=== PATIENT | female | born 2000 | race Caucasian/White ===

== ENCOUNTER → 2025-04-12 10:00 | Outpatient (BNV) | payer MEDICARE, MEDICAID, SELFPAY | PROVIDERS: Visit Provider Psychiatry & Neurology Psychiatry | DX: F25.0 Schizoaffective disorder, bipolar type (principal); F41.1 Generalized anxiety disorder; F43.10 Post-traumatic stress disorder, unspecified | CPT/HCPCS: 99213; 99214 ==

== ENCOUNTER 2025-04-12 11:18 | Outpatient (REF) | payer MEDICARE, MEDICAID, SELFPAY ==
--- NOTE | 2025-04-12 11:30 | ECG_ITS ---
Test Reason : ROUTINE EKG Blood Pressure : */* mmHG Vent. Rate : 81 BPM Atrial Rate : 81 BPM P-R Int : 126 ms QRS Dur : 88 ms QT Int : 392 ms P-R-T Axes : 24 54 19 degrees QTcB Int : 455 ms Normal sinus rhythm Normal ECG No previous ECGs available Referred By: Paz Good Electronically Signed By: MAXIMO AB
[2025-04-12 11:44] LABS: MANUAL DIFF FLAG NO
--- OUTSIDE RECORDS SUMMARY | 2025-04-12 12:00 | XMS_ITS | Clinical Summary ---
Author Organization [facility] Address [address] [facility] [address] [place] [address] Phone Care Team Providers Care Contact Finger Assembler Name Role Phone Unknown, Unknown Primary Care Provider Maty arguelles Allergies No known active allergies Medications norethindrone-e thinyl estradiol (ORTHO-NOVUM 1-35 TAB,NORTREL 1-35 TAB) 1-0.035 mg per tablet Take 1 tablet by mouth daily. Active benztropine (COGENTIN) 0.5 MG tablet Take 7.5 mg by mouth 2 (two) times a day. Active lamoTRIgine (LAMICTAL) 100 MG tablet Take 150 mg by mouth 2 (two) times a day. Active mirtazapine (REMERON) 7.5 MG tablet Take 30 mg by mouth nightly at bedtime. Active hydrOXYzine HCL (ATARAX) 10 MG tablet Take 10 mg by mouth 3 (three) times a day as needed for itching. Active ziprasidone (GEODON) 40 MG capsule TAKE 1 CAPSULE BY MOUTH 2 TIMES A DAY,INSTR WITH FOOD 10/30/2020 Active ziprasidone (GEODON) 80 MG capsule 100 mg. 2 times a day 11/06/2020 Active tiZANidine (ZANAFLEX) 4 MG tablet Take 1 tablet (4 mg total) by mouth every 12 (twelve) hours. 180 tablet 1 02/06/2021 Active gabapentin (NEURONTIN) 100 MG capsule Take 3 capsules (300 mg total) by mouth daily. Take 3 caps at bed time. 270 capsule 3 06/02/2021 Active nabumetone (RELAFEN) 500 MG tablet Take 1 tablet (500 mg total) by mouth 2 (two) times a day. 180 tablet 08/17/2021 Active Active Problems Problem Noted Date Diagnosed Date Positive SABRINA (antinuclear antibody) 01/18/2020 Assessment & Plan (11/19/2020 4:15 PM EDT): Patient will monitor for any new autoimmune changes, symptoms. No new changes on visit today. Acute pain of both shoulders 12/05/2019 Assessment & Plan (11/19/2020 4:16 PM EDT): Continue nabumetone 500 mg Take one pill PO BID with food for knee pain relief. Acute pain of both knees 12/05/2019 Assessment & Plan (11/19/2020 4:16 PM EDT): Continue nabumetone 500 mg Take one pill PO BID with food for knee pain relief. Continue Zanaflex 4 mg PO qhs for knee tendinitis pain as needed. Muscle spasm 12/05/2019 Assessment & Plan (11/19/2020 4:16 PM EDT): Continue Zanaflex 4 mg take one pill PO qhs. Immunizations Immunization Administration Dates Next Due COVID-19 (Pre-05/16) Pfizer Vaccine, mRNA, PF Social History Tobacco Use Types Packs/Day Years Used Date Smoking Tobacco: Never Smokeless Tobacco: Never Alcohol Use Standard Drinks/Week Comments Never 0 (1 standard drink = 0.6 oz pur e alcohol) Education Answer Date Recorded Are you interested in more education? Not on kali e 11/19/2022 Are you concerned about learning? Not on file 11/19/2022 No 11/19/2022 No 11/19/2022 Digital Access Answer Date Recorded No 12/18/2022 No 12/18/2022 No 12/18/2022 Reliable internet access at home? Not on file 12/18/2022 Device with a working camera? Not on file Comments Unknown Sex and Gender Information Value Date Recorded Sex Assigned at Female 04/03/2020 11:56 AM EDT Legal Sex Female 3:36 PM EST Gender Identity Female 04/03/2020 11:56 AM EDT Sexual Orientation Not on file Last Filed Vital Signs Vital Sign Reading Time Taken Comments Blood Pressure 112/70 04/10/2021 1:54 PM EDT Pulse 90 02/06/2021 12:59 PM EDT Temperature 37 C (98.6 F) 07/16/2020 4:08 PM EST Respiratory Rate - - Oxygen Saturation 98% 02/06/2021 12:59 PM EDT Inhaled Oxygen Concentration - - Weight 49 kg (108 lb) 04/10/2021 1:54 PM EDT Height 152.4 cm (5') 04/10/2021 1:54 PM EDT Body Mass Index 21.09 04/10/2021 1:54 PM EDT Plan of Treatment Health Maintenance Due Date Last Done Comments DEPRESSION SCREENING 2010 HEPATITIS C SCREENING 2016 HIV ONE-TIME SCREENING (18-65 YEARS) 2016 MENINGOCOCCAL VACCINES (B) (2 of 2 - Bexsero SCDM 2-dose series) 05/11/2018 11/09/2017 PAP SMEAR 12/11/2019 Adult Td,Tdap Booster 12/29/2020 12/29/2010 SMOKING STATUS SCREENING (Once After 26 Yrs) 2024 INFLUENZA VACCINE (#1) 2025 , 09/03/2017, 08/28/2014, Additional history exists COVID-19 VACCINE ( season) 2025 12/08/2020, 11/17/2020 HIB VACCINES Completed 11/20/2001 HPV VACCINES Completed 09/03/2015, 0210/2014, 07/12/2013 MENINGOCOCCAL VACCINES (ACWY) Completed 09/03/2015, 12/29/2010 HEPATITIS A VACCINES Aged Out No long er eligible based on patient's age to complete this topic PNEUMOCOCCAL VACCINES (0-49 years) Aged Out No longer eligible based on patient's age to complete this topic Medical Devices Not on file Insurance [employer] [place] [id number] [employer] TOTAL [employer]DE[employer] TOTAL CHOICE INDEMNITY [employer] TOTAL CHOICE INDEMNITY [employer] TOTAL CHOICE INDEMNITY [employer] TOTAL CHOICE INDEMNITY [employer] TOTAL CHOICE INDEMNITY [employer] TOTAL CHOICE INDEMNITY [facility] TOTAL CHOICE INDEMNITY Care Teams Contact Finger Assembler Relationship Specialty Start Date End Date Unknown, Unknown, PCP - General 05/05/21 Additional Source Comments The information contained in this document represents components of the legal health record. It is not the complete legal health record.[facility]
[2025-04-12 12:16] LABS: Hematocrit 39.5 % (37.0-47.0); Hemoglobin 13.2 g/dl (12.0-16.0); Imm Gran Abs Auto 0.02 X10*3/uL (0.00-0.03); Imm Gran Pct Auto 0.3 % (0.0-0.4); Lymphocytes Absolute Auto 2.8 X10*3/uL (1.2-4.9); Mean Corpuscular HGB Conc 33.4 g/dl (31.0-35.0); Mean Corpuscular Hemoglobin 28.8 pg (27.0-33.0); Mean Corpuscular Volume 86.2 fL (80.0-98.0); NRBC Abs Auto 0.000 X10*3/uL (0.0-0.012); NRBC Pct Auto 0.0 /100WBC (0.0-0.2); Platelet Count 394 X10*3/uL (160-400); Red Blood Count 4.58 X10*6/uL (4.20-5.50); White Blood Count 7.7 X10*3/uL (4.8-10.8)
[2025-04-12 12:33] LABS: Hemoglobin A1C 109.3671 umol/L; Total Hemoglobin (HGBA1C) 3524.9290 umol/L
[2025-04-12 12:44] LABS: Lithium 0.25 mmol/L (0.60-1.20)
[2025-04-12 13:04] LABS: Alanine Aminotransferase 21 U/L (0-31); Albumin Level 4.3 g/dL (3.5-5.0); Alkaline Phosphatase 63 U/L (39-117); Anion Gap 11 (12-20); Aspartate Amino Transferase 22 U/L (5-31); Blood Urea Nitrogen 10 mg/dL (9-16); Calcium 9.2 mg/dL (8.4-10.2); Carbon Dioxide 23 mmol/L (22-29); Chloride 108 mmol/L (96-108); Cholesterol 204 mg/dL (<200); Estimated Glomerular Filt Rate > 60; Iron 21 mcg/dL (30-160); Magnesium 1.9 mg/dL (1.6-2.6); Percent Iron Saturation 6 % (15-50); Potassium 4.0 mmol/L (3.3-5.1); Sodium 138 mmol/L (135-145); Total Iron Binding Capacity 364 mcg/dL (228-428); Total Protein 7.3 g/dL (6.5-8.0); Unsaturated Iron Binding 343 ug/dL
[2025-04-12 13:21] LABS: Free T4 (Free Thyroxine) 1.00 ng/dL (0.71-1.85); Thyroid Stimulating Hormone 2.71 uIU/mL (0.32-4.0)
[2025-04-12 13:25] LABS: Folate 6.5 ng/mL (> or = 4.0); Vitamin B12 521 pg/mL (200-900)
== END 2025-04-12 11:19 | disposition home or self-care (01) ==
LOC: HO.LAB 11:18
PROVIDERS: PCP Physician Assistant Medical; Visit Provider Psychiatry & Neurology Psychiatry
DX: F25.0 Schizoaffective disorder, bipolar type (principal); F43.0 Acute stress reaction; Z13.6 Encounter for screening for cardiovascular disorders; Z13.1 Encounter for screening for diabetes mellitus; Z13.29 Encounter for screening for other suspected endocrine disorder; Z13.0 Encounter for screening for diseases of the blood and blood-forming organs and certain disorders involving the immune mechanism
CPT/HCPCS: 36415; 80053; 80178; 82306; 82465; 82550; 82607; 82746; 83036; 83540; 83735; 84425; 84439; 84443; 85025; 93005

== ENCOUNTER → 2025-04-12 11:30 | Outpatient (BNV) | payer MEDICARE, MEDICAID, SELFPAY | PROVIDERS: PCP Physician Assistant Medical; Visit Provider Internal Medicine | DX: Z13.6 Encounter for screening for cardiovascular disorders (principal) | CPT/HCPCS: 93010 ==

== ENCOUNTER 2025-05-01 14:01 | Outpatient (REF) | payer MEDICARE, MEDICAID, SELFPAY ==
--- NOTE | 2025-05-01 14:07 | ECG_ITS ---
Test Reason : CHECK QT Blood Pressure : */* mmHG Vent. Rate : 91 BPM Atrial Rate : 91 BPM P-R Int : 118 ms QRS Dur : 82 ms QT Int : 372 ms P-R-T Axes : 71 50 11 degrees QTcB Int : 457 ms Normal sinus rhythm Normal ECG When compared with ECG of 12-Apr-2025 11:45, No significant change was found Referred By: Paz Good Electronically Signed By: MONIQUE HEATH MD
[2025-05-01 14:58] LABS: Appearance Urine Clear; Glucose Urine UA Negative (Negative); PH 7.0 (5.0-9.0); Specific Gravity - Urine <= 1.005 (1.005-1.025)
[2025-05-01 15:24] LABS: Osmolality, Serum 292 mosm/kg (281-305)
[2025-05-01 15:34] LABS: Anion Gap 10 (12-20); Blood Urea Nitrogen 8 mg/dL (9-16); Calcium 9.3 mg/dL (8.4-10.2); Carbon Dioxide 22 mmol/L (22-29); Chloride 109 mmol/L (96-108); Estimated Glomerular Filt Rate > 60; Potassium 4.2 mmol/L (3.3-5.1); Sodium 137 mmol/L (135-145)
[2025-05-01 15:43] LABS: Ferritin 23 ng/mL (10-122)
[2025-05-01 15:58] LABS: Lithium 0.38 mmol/L (0.60-1.20)
== END 2025-05-01 14:02 | disposition home or self-care (01) ==
LOC: HO.LAB 14:01
PROVIDERS: PCP Physician Assistant Medical; Visit Provider Psychiatry & Neurology Psychiatry
DX: E61.1 Iron deficiency (principal); F25.9 Schizoaffective disorder, unspecified; G25.9 Extrapyramidal and movement disorder, unspecified
CPT/HCPCS: 36415; 80048; 80178; 81003; 82550; 82570; 82728; 83930; 83935; 84300; 93005

== ENCOUNTER → 2025-05-01 14:07 | Outpatient (BNV) | payer MEDICARE, MEDICAID, SELFPAY | PROVIDERS: PCP Physician Assistant Medical; Visit Provider Internal Medicine Cardiovascular Disease | DX: Z13.6 Encounter for screening for cardiovascular disorders (principal) | CPT/HCPCS: 93010 ==

== ENCOUNTER 2025-05-10 09:45 | Outpatient (RCR) | payer MEDICARE, SELFPAY ==
[2025-04-03 09:32] VITALS: BMI 27.1
[2025-04-03 09:33] VITALS: BP 96/70; PULSE 72; TEMP 36.6
--- NOTE | 2025-04-03 10:21 | PC.ADMIT ---
Patient is a 24 year old single female who was referred to [facility] by crisis d/t increased depression with SI and plan and intent to self harm. Patient has a history of self harm by cutting. During the nursing assessment patient reports she has been doing better mentally for the past week or two. She denied SI, denied any plans or intent to kill herself. Patient reports history of inpatient LOC last time was in January 2025. Patient stated she was drinking a lot of energy drinks three a day and had a Manic episode . She has since stopped drinking energy drinks as she stated she does not want a manic episode to happen. Patient identified supports stating her, Mother, therapist, psychiatrist and a couple of my friends. Patient stated she has DDS services. She reports she will be getting a alternative financing specialist for three months. She has ILS services (Independent Living Support)through [facility]. Patient reports she was in the [facility] program however she stated she did not get a long with the people there thus does not go there anymore. She also attends [employer] a health day program in [place] on . Patient is alert and oriented x4. She is calm and cooperative. Thoughts are clear and logical. She does not appear to be responding to internal stimuli. She reports having a history of struggling with delusions and grandiosity and psychosis however denied this presently. She reports she has been feeling better. Patient denied SI or HI. She was given a copy of her safety plan if needed. Medications updated with patient and patient's pharmacy's [facility] and [facility]. She reports she is not longer on Risperdal and is on Invega now however she stated she took the Risperdal yesterday as she did not have the Invega. Will review with Dr. Good. Patient gets her medications delivered to her home by [facility]. Patient reports she is taking medications as prescribed.
--- NOTE | 2025-04-04 15:23 | HO.PHP ---
Patients case was opened in weekly team treatment meeting
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
[2025-04-12 12:32] VITALS: BP 106/62; PULSE 96
--- NOTE | 2025-04-17 14:13 | P.PNPSP_ITS ---
Subjective Subjective Date of Service: 04/17/25 Reason For Visit: schizoaffective d/o Interim History: Met with patient; discussed with team; reviewed chart Patient reports that lately her mood has been more irritable; she says she has more racing thoughts and her mood is going from highs to lows.. Patient also reports increased experience of AH of murmurs; patient says she has not been sleeping much the past few days and wonders if she is hypomanic. Band Teacher discusses hypomania and explains that patient, who is sitting calmly, talking calmly without any pressured speech does not necessarily appear manic but that her increase in experience symptoms make sense to make medication adjustment. Patient very much does not want medications that cause weight gain; agreed to discontinue Zyprexa, which she has not been taking much and increase Vraylar to 3 mg. Mental Status Exam Mental Status Exam Narrative: Pt is alert and oriented; behavior is cooperative, friendly and calm; patient is not in distress; dressed in casual attire with unkempt hair but adequate hygiene; mood is described as highs and lows... Irritable affect currently calm; eye contact avoidant, often looking at piece of cloth; Speech is normal rate, volume and prosody and not pressured; no psychomotor agitation/retardation present; thought process is organized and goal directed; Thought content is on recent increase in symptoms, AH; no delusional ideations expressed; denies any SI/HI. Reports increased AH of murmurs. Patients insight and judgment appear intact. Diagnostics Vital Signs (24Hr): BMI result Body Mass Index 27.1 Assessment & Plan Assessment & Plan (1) Schizoaffective disorder, bipolar type: Status: Acute Code(s): F25.0 - Schizoaffective disorder, bipolar type (2) STEVEN (generalized anxiety disorder): Status: Acute Code(s): F41.1 - Generalized anxiety disorder (3) Post traumatic stress disorder (PTSD): Status: Acute Code(s): F43.10 - Post-traumatic stress disorder, unspecified Plan 04/17 Patient reports that lately her mood has been more irritable; she says she has more racing thoughts and her mood is going from highs to lows.. Patient also reports increased experience of AH of murmurs; patient says she has not been sleeping much the past few days and wonders if she is hypomanic. Band Teacher discusses hypomania and explains that patient, who is sitting calmly, talking calmly without any pressured speech does not necessarily appear manic but that her increase in experience symptoms make sense to make medication adjustment. Patient very much does not want medications that cause weight gain; agreed to discontinue Zyprexa, which she has not been taking much and increase Vraylar to 3 mg. Plan: Increase Vraylar to 3 mg Discontinue Zyprexa Continue other home medications Patient educated on: diagnosis, medication risk/benefits and therapeutic strategies Informed Consent: understands Reason for contiued partial hosp. stay Substantial Risk for: med/psych decompensation Certification I certify that partial hospital treatment is medically necessary due to the symptoms and problems resulting from the patient's mental illness and the failure to treat the patient at the partial hospital level of care would likely result in the patient requiring inpatient psychiatric care which could not be prevented at a less intensive level of care. Total time managing care of this patient today ____ minutes. Discharge Plan Discharge Attending provider: Paz Good Medications: New paliperidone [Invega] 9 mg tablet extended release 24hr 9 mg PO QAM Qty: 14 0RF gabapentin 300 mg capsule 600 mg PO BEDTIME 14 Days Qty: 28 0RF Continued lithium carbonate 450 mg Tablet Extended Release 450 mg PO BEDTIME trazodone 150 mg Tablet 150 mg PO BEDTIME PRN (Reason: Insomnia) benztropine 1 mg tablet 1 mg PO DAILY hydroxyzine HCl 10 mg tablet 20 - 30 mg PO TID PRN (Reason: anxiety) lamotrigine 100 mg Tablet 100 mg PO BID tizanidine 4 mg tablet 4 mg PO BID Nortrel () 1-35 mg-mcg tablet 1 tab PO DAILY melatonin 3 mg Capsule 3 mg PO BEDTIME PRN (Reason: Insomnia) Rx Instructions: Patient takes OTC as needed at bedtime. Discontinued paliperidone [Invega] 6 mg Tablet Extended Release 24hr 6 mg PO QAM gabapentin 300 mg capsule 300 mg PO BEDTIME Patient Comments: Patient takes at bedtime. Stand Alone Forms: Patient Portal Discharge page Print Language: Ghanaian
--- NOTE | 2025-04-19 09:30 | HO.PHPPROGNO ---
Subjective Subjective Date of Service: 04/19/25 Reason For Visit: schizoaffective d/o Healthcare Proxy: No Guardianship: No Medical Problems Affecting Mental Status: No Interim History: 24 yo with racing thoughts and inc activity asked to see based on struggling with this and then moments of down- denies current si/sib- using soft cloth for sensory soothing- some trouble sleeping and a number of medication changes recently which confused pt and unclear what is doing what for them. So plan to address sleep and racing thoughts/hypomania discussed and coordinate care with outpt provider- who hopes to get them on invega FISH Medication Compliance: Yes (confused about all med changes) Side effects from medications: No Attending Groups: Yes Review of Systems Acute medical concerns: No Medical Review of Systems: unchanged Mental Status Exam Mental Status Exam Narrative: casually dressed Patient Appearance: Appropriate Patient Orientation: Person, Place, Time and Situation Level of Consciousness: Awake Patient Behavior: Talkative, Cooperative, Restless and Poor Eye Contact (maybe baseline patient on autism spectrum) Mood Description: Anxious Affect Description: Apprehensive Patient Cognition Impaired: No Ability to Follow Directions: Fair Speech Pattern: Clear Hallucinations: None Delusions: Not Present Thought Process: Racing Thought Content: positive for Perseveration Depressive Symptoms: Increased Anxiety, Insomnia and Difficulty Concentrating Abnormal Motor Activity Signs and Symptoms: Restlessness Judgement: Fair Diagnostics Vital Signs (24Hr): BMI result Body Mass Index 26.9 Assessment & Plan Assessment & Plan (1) Schizoaffective disorder, bipolar type: Status: Acute Code(s): F25.0 - Schizoaffective disorder, bipolar type (2) Autism spectrum disorder: Status: Acute Code(s): F84.0 - Autistic disorder Plan dc vraylar pt more manic not sleeping inc invega to 9mg outpt provider looking to get her on FISH INc gabapentin for sleep to 600mg, can also continue trazodone prn and melatonin prn Patient educated on: medication risk/benefits Informed Consent: understands Reason for contiued partial hosp. stay Substantial Risk for: rapid decompensation Certification I certify that partial hospital treatment is medically necessary due to the symptoms and problems resulting from the patient's mental illness and the failure to treat the patient at the partial hospital level of care would likely result in the patient requiring inpatient psychiatric care which could not be prevented at a less intensive level of care. Total time managing care of this patient today ____ minutes. Discharge Plan Discharge Attending provider: Paz Good Medications: New paliperidone [Invega] 9 mg tablet extended release 24hr 9 mg PO QAM Qty: 14 0RF gabapentin 300 mg capsule 600 mg PO BEDTIME 14 Days Qty: 28 0RF Continued lithium carbonate 450 mg Tablet Extended Release 450 mg PO BEDTIME trazodone 150 mg Tablet 150 mg PO BEDTIME PRN (Reason: Insomnia) benztropine 1 mg tablet 1 mg PO DAILY hydroxyzine HCl 10 mg tablet 20 - 30 mg PO TID PRN (Reason: anxiety) lamotrigine 100 mg Tablet 100 mg PO BID tizanidine 4 mg tablet 4 mg PO BID Nortrel 1 (28) 1-35 mg-mcg tablet 1 tab PO DAILY melatonin 3 mg Capsule 3 mg PO BEDTIME PRN (Reason: Insomnia) Rx Instructions: Patient takes OTC as needed at bedtime. Discontinued paliperidone [Invega] 6 mg Tablet Extended Release 24hr 6 mg PO QAM gabapentin 300 mg capsule 300 mg PO BEDTIME Patient Comments: Patient takes at bedtime. Stand Alone Forms: Patient Portal Discharge page Print Language: French
[2025-04-24 11:43] VITALS: BP 116/68; PULSE 96
--- NOTE | 2025-04-24 19:51 | HO.PHPPROGNO ---
Subjective Subjective Date of Service: 04/22/25 Reason For Visit: schizoaffective d/o Interim History: Patient seen for follow-up. Says her OP provider Johanna on who stopped the oxcarbazepine (felt it was not doing anything at 150 mg BID) and had bumped her dose of paliperidone to 9 mg (noting provider says she has previously been on 9 mg in the past), although pt did not receive new script until covering PHP provider sent that over on Tuesday and has been taking 9 mg since then. Denies any adverse effects. Denies dysphagia, dysarthria, stiffness, other EPS sx . I still cant tell if it working yet. Helped a little but I feel the same as last week. She is not sure how it helped. Sleep has been variable and was sleeping okay until 2 or 3 nights ago. Continued complaints of feeling hypomanic noting that she is really hyper...talking fast...racing thoughts but no grandiosity or hallucinations . Denies any morbid ruminations, SI, AI, HI. She says there was talk of going up on her lithium and is hoping to get this filled. Will plan to send for labwork check Li level renal next week. Medication Compliance: Yes Side effects from medications: No Attending Groups: Yes Review of Systems Acute medical concerns: No Mental Status Exam Mental Status Exam Narrative: Alert, oriented, in no acute distress. Calm, cooperative, engaged. No psychomotor agitation or neurovegetative retardation. Eye contact maintained. Mood anxious, apprehensive, irritable, affect anxious. Speech normal. Thought process scattered, linear, coherent, preoccupied. Thought content related to stressors, mild thought blocking, racing thoughts, feeling overwhelmed, some transient helplessness, denies hopelessness or SI, intention or plan. Denies any aggressive ideation. No paranoia or delusional content elicited. No evidence of psychosis. Insight and judgment fair but adequate. Diagnostics Vital Signs (24Hr): Vital Signs - 24 hr 04/24/25 11:43 Pulse Rate 96 Blood Pressure 116/68 BMI result Body Mass Index 27.1 Assessment & Plan Assessment & Plan (1) Schizoaffective disorder, bipolar type: Status: Acute Code(s): F25.0 - Schizoaffective disorder, bipolar type (2) Autism spectrum disorder: Status: Acute Code(s): F84.0 - Autistic disorder (3) STEVEN (generalized anxiety disorder): Status: Acute Code(s): F41.1 - Generalized anxiety disorder (4) Post traumatic stress disorder (PTSD): Status: Acute Code(s): F43.10 - Post-traumatic stress disorder, unspecified (5) Acute stress reaction: Status: Acute Code(s): F43.0 - Acute stress reaction Plan continue PHP patient's outpatient provider is continuing to manage medications apparently olanzapine as well as oxcarb discontinued though dose only 150 bid and keeping her on paliperidone (dose was increased to 9 mg daily) will increase lithium er from 450 to 600 mg qhs but will otherwise defer med management to OP provider who appers to still be meeting with pt weekly continue regular medications Routine lab work as indicated EKG, routine for baseline QTc for medication considerations as indicated UDS as indicated Continue to monitor Patient educated on: diagnosis and medication risk/benefits Informed Consent: understands Reason for contiued partial hosp. stay Substantial Risk for: inability to function, rapid decompensation and med/psych decompensation Certification I certify that partial hospital treatment is medically necessary due to the symptoms and problems resulting from the patient's mental illness and the failure to treat the patient at the partial hospital level of care would likely result in the patient requiring inpatient psychiatric care which could not be prevented at a less intensive level of care. Total time managing care of this patient today __30__ minutes. Discharge Plan Discharge Attending provider: Paz Good Medications: New paliperidone [Invega] 9 mg tablet extended release 24hr 9 mg PO QAM Qty: 14 0RF gabapentin 300 mg capsule 600 mg PO BEDTIME 14 Days Qty: 28 0RF lithium carbonate 300 mg tablet extended release 600 mg PO BEDTIME Qty: 60 0RF Continued lithium carbonate 450 mg Tablet Extended Release 450 mg PO BEDTIME trazodone 150 mg Tablet 150 mg PO BEDTIME PRN (Reason: Insomnia) benztropine 1 mg tablet 1 mg PO DAILY hydroxyzine HCl 10 mg tablet 20 - 30 mg PO TID PRN (Reason: anxiety) lamotrigine 100 mg Tablet 100 mg PO BID tizanidine 4 mg tablet 4 mg PO BID Nortrel (28) 1-35 mg-mcg tablet 1 tab PO DAILY melatonin 3 mg Capsule 3 mg PO BEDTIME PRN (Reason: Insomnia) Rx Instructions: Patient takes OTC as needed at bedtime. Discontinued paliperidone [Invega] 6 mg Tablet Extended Release 24hr 6 mg PO QAM gabapentin 300 mg capsule 300 mg PO BEDTIME Patient Comments: Patient takes at bedtime. Stand Alone Forms: Patient Portal Discharge page Print Language: Mauritanian
--- NOTE | 2025-04-30 19:46 | HO.PHPPROGNO ---
Subjective Subjective Date of Service: 04/30/25 Reason For Visit: schizoaffective d/o Interim History: Patient complaining of worsening stiffness and discomfort in posterior neck since last week. Patient presenting more calm but anxious about neck pain. Good television reporter. Covering php provider increased paliperidone from 6 to 9 mg on 04/19 (per OP psychiatrist, pt had responded well to 9 mg paliperidone in the past - which is why covering provider increased dose to 9 mg Hallucinations have diminished somewhat, still experiencing AH as murmurs no further VH like last week ( seeing cartoon people on the street ) Still complaining of nightmares and vivid dreams which disturb her and want help with this. Reports being more forthcoming about trauma and trying to process this in groups To recap low dose OXC 150 mg and Zyprexa 2.5 discontinued over a week ago Vraylar titrated to 3 mg but discontinued after 2 days in lieu of increase in paliperidone to 9 mg) pt reportedly became more manic which was attributed to the increase in Vraylay (rather than possibly due to olanzapine being discontinued earlier that week) Pt has experienced EPS/neck stiffness from medications in the past. Currently on Cogentin 1 mg. Denies any dysphagia, dysarthria, dyspnea or other s/s EPS. multiple providers managing medications (PHP coverage past week due to being out sick, also outpatient provider input), complicating treatment - this juliette needs to be clarified w outpatient med provider if I am to continue managing patient's medications. Per progress note 04/19, OP provider interested in optimizing paliperidone to transition patient to FISH. pt not currently tolerating 9 mg paliperidone and patient already prescribed benztropine, will lower dose to 7.5 mg given EPS, QTc was 455 a few weeks ago when dose was 6 mg (so will recheck these) Medication Compliance: Yes Side effects from medications: Yes (as noted above) Attending Groups: Yes Review of Systems Acute medical concerns: No Mental Status Exam Mental Status Exam Narrative: Alert, oriented, in no acute distress. Calm, cooperative, engaged, agreeable. +neck stiffness/EPS (no other signs of pathology). Eye contact intermittent. Mood anxious, affect anxious. Speech normal. Thought process less scattered, linear, coherent. Thought content related to stressors, focused on medication side effects, overall more organized, goal-directed, Future oriented, no helplessness, denies hopelessness or SI, intention or plan. Denies any aggressive ideation. No paranoia or delusional content elicited. No evidence of psychosis. Insight good and judgment fair-good. Diagnostics Vital Signs (24Hr): BMI result Body Mass Index 27.1 Assessment & Plan Assessment & Plan (1) Schizoaffective disorder, bipolar type: Status: Acute Code(s): F25.0 - Schizoaffective disorder, bipolar type (2) Autism spectrum disorder: Status: Acute Code(s): F84.0 - Autistic disorder (3) STEVEN (generalized anxiety disorder): Status: Acute Code(s): F41.1 - Generalized anxiety disorder (4) Post traumatic stress disorder (PTSD): Status: Acute Code(s): F43.10 - Post-traumatic stress disorder, unspecified (5) Acute stress reaction: Status: Acute Code(s): F43.0 - Acute stress reaction Plan 04/24 increase lithium ER to 600 mg cont paliperidone 9 mg qd cont gabapentin 600 mg qhs cont lithium ER 450 mg, lamotrigine 200 mg, benztropine 1 mg, trazodone 150 mg prn, melatonin prn 04/19 (covering provider) pt more manic, not sleeping dc vraylar. (mght also have been that Zyprexa was discontinued !) inc invega to 9mg outpt provider looking to get her on FISH inc gabapentin for sleep to 600mg cont lithium ER 450 mg, lamotrigine 200 mg, benztropine 1 mg, trazodone 150 mg prn, melatonin prn 04/17 (covering provider) Increase Vraylar to 3 mg Discontinue Zyprexa cont paliperidone 6 mg qam cont lithium ER 450 mg, lamotrigine 200 mg, gabapentin 300 mg, benztropine 1 mg, trazodone 150 mg prn, melatonin prn 04/12 hold olanzapine 2.5 mg qhs start Vraylar 1.5 mg qd start oxcarbazepine 150 mg BID cont paliperidone 6 mg qam cont lithium ER 450 mg, lamotrigine 200 mg, gabapentin 300 mg, benztropine 1 mg, trazodone 150 mg prn, melatonin prn 04/05 start olanzapine 2.5 mg qhs cont paliperidone 6 mg qam cont lithium ER 450 mg, lamotrigine 200 mg, gabapentin 300 mg, benztropine 1 mg, trazodone 150 mg prn, melatonin prn PLAN: continue PHP multiple providers managing medications (oupatient, PHP coverage), complicating treatment - this needs to be clarified w OP MD for now paliperidone needs to be reduced given EPS, EKG changes, and patient already prescribed benztropine ALso pt had only been on Vraylar at 3 mg for 2 days and was discont last week, pt reportedly became more manic - p reduce paliperidone from 9 mg to 7.5 mg qd (split dose AM/afternoon) continue lithium er 600 mg qhs (will give lab slip for Li level/blood draw for midweek) start diphenhydramine 25-50 mg qhs continue cogentin 1 mg qd continue lamotrigine 100 mg BID continue gabapentin 600 mg qhs continue trazodone 150 mg qhs prn continue melatonin 3 mg qhs prn continue regular medications Will check lithium level, renal fxn, ck, on will also check ferritin and cbc given low iron studies (?normal hb hct possibly 2/t dehydration, check u/a and osm urine juliette since lithium was raised) Borderline QTc 455 last month (paliperidone was at 6 mg), will recheck this as well since paliperidone was increased Continue to monitor Patient educated on: diagnosis, medication risk/benefits and medical condition Informed Consent: understands Reason for contiued partial hosp. stay Substantial Risk for: inability to function, rapid decompensation and med/psych decompensation Certification I certify that partial hospital treatment is medically necessary due to the symptoms and problems resulting from the patient's mental illness and the failure to treat the patient at the partial hospital level of care would likely result in the patient requiring inpatient psychiatric care which could not be prevented at a less intensive level of care. Total time managing care of this patient today __30__ minutes. Discharge Plan Discharge Attending provider: Paz Good Medications: New paliperidone [Invega] 9 mg tablet extended release 24hr 9 mg PO QAM Qty: 14 0RF gabapentin 300 mg capsule 600 mg PO BEDTIME 14 Days Qty: 28 0RF lithium carbonate 300 mg tablet extended release 600 mg PO BEDTIME Qty: 60 0RF paliperidone [Invega] 6 mg tablet extended release 24hr 6 mg PO QAM Qty: 15 0RF paliperidone [Invega] 1.5 mg tablet extended release 24hr 1.5 mg PO QAM Qty: 15 0RF Rx Instructions: = 7.5 mg/day in total diphenhydramine HCl 25 mg capsule 25 - 50 mg PO BEDTIME PRN (Reason: insomnia/stiffness/extrapyramidal symptoms) Qty: 30 0RF prazosin 1 mg capsule 1 mg PO QPM Qty: 20 0RF Continued lithium carbonate 450 mg Tablet Extended Release 450 mg PO BEDTIME trazodone 150 mg Tablet 150 mg PO BEDTIME PRN (Reason: Insomnia) benztropine 1 mg tablet 1 mg PO DAILY hydroxyzine HCl 10 mg tablet 20 - 30 mg PO TID PRN (Reason: anxiety) lamotrigine 100 mg Tablet 100 mg PO BID tizanidine 4 mg tablet 4 mg PO BID Nortrel 1 (28) 1-35 mg-mcg tablet 1 tab PO DAILY melatonin 3 mg Capsule 3 mg PO BEDTIME PRN (Reason: Insomnia) Rx Instructions: Patient takes OTC as needed at bedtime. Discontinued paliperidone [Invega] 6 mg Tablet Extended Release 24hr 6 mg PO QAM gabapentin 300 mg capsule 300 mg PO BEDTIME Patient Comments: Patient takes at bedtime. Stand Alone Forms: Patient Portal Discharge page Print Language: Jamaican
[2025-05-01 08:39] VITALS: BP 79/59; PULSE 65
--- NOTE | 2025-05-01 08:40 | PC.NURSE ---
Addendum entered by Nova Mcgowan RN 05/01/25 11:55: Dr. Good is aware of the aforementioned information. Patient instructed to hold Prazosin and lab orders obtained. Original Note: Lexie BP 79/59 P 65. Stated she did not start the Prazosin as she was not able to pick it up yesterday. I told her to hold it for now. She feels a little off balance, denied dizziness or lightheadedness. She reports she has not been drinking much fluids. I have her drinking fluids now and will recheck BP. I texted Dr. Good the above information and am awaiting a response.
[2025-05-01 08:58] VITALS: BP 81/69; PULSE 69
[2025-05-01 11:45] VITALS: BP 100/78; PULSE 67
--- NOTE | 2025-05-01 11:53 | PC.NURSE ---
BP at 11:50 am 100/78 P 67. Patient is going to continue to hydrate with fluids. Patient told to hold Prazosin per Dr. Mcarthur instructions. Telephone order per Dr. Good for labs/EKG to be completed by patient. Patient given lab slip with instructions.
--- NOTE | 2025-05-03 12:17 | P.PNPSP_ITS ---
Subjective Subjective Date of Service: 05/03/25 Reason For Visit: schizoaffective d/o Interim History: Patient doing well, SHe is pleased that thus far she reports stiffness in her neck has been improving and mostly resolved since decreasing dose of paliperidone to 7.5 mg and splitting the dose. Also taking COgentin now at twice daily and Benadryl for sleep at night. I'm sleeping better too . Endorses vivid dreams and sometimes nightmares, says it pertaining to trauma hx. She is need of refills on the paliperidone. Denies any SI, HI, AH, VH. No complaints Medication Compliance: Yes Side effects from medications: Yes (as noted above) Attending Groups: Yes Review of Systems Acute medical concerns: No Mental Status Exam Mental Status Exam Narrative: Alert, oriented, in no acute distress. Calm, cooperative, engaged, agreeable. improving/resolving neck stiffness/EPS. no abnormal movements, normal gait. Eye contact intermittent. Mood anxious, affect brighter, calmer. Speech normal. Thought process less scattered, linear, coherent. Thought content related to stressors, focused on medication side effects, overall more organized, goal- directed, Future oriented, no helplessness, denies hopelessness or SI, intention or plan. Denies any aggressive ideation. No paranoia or delusional content elicited. No evidence of psychosis. Insight good and judgment fair-good. Diagnostics Vital Signs (24Hr): BMI result Body Mass Index 27.1 Assessment & Plan Assessment & Plan (1) Post traumatic stress disorder (PTSD): Status: Acute Code(s): F43.10 - Post-traumatic stress disorder, unspecified (2) Schizoaffective disorder, bipolar type: Status: Acute Code(s): F25.0 - Schizoaffective disorder, bipolar type (3) Autism spectrum disorder: Status: Acute Code(s): F84.0 - Autistic disorder (4) STEVEN (generalized anxiety disorder): Status: Acute Code(s): F41.1 - Generalized anxiety disorder (5) Acute stress reaction: Status: Acute Code(s): F43.0 - Acute stress reaction Plan 05/01 reduce paliperidone from 9 mg to 7.5 mg qd (split dose AM/afternoon) cont lithium er 600 mg qhs (will give lab slip for Li level/blood draw for midweek) start diphenhydramine 25-50 mg qhs cont cogentin 1 mg qd cont lamotrigine 100 mg BID cont gabapentin 600 mg qhs cont trazodone 150 mg qhs prn cont melatonin 3 mg qhs prn 04/24 increase lithium ER to 600 mg cont paliperidone 9 mg qd cont gabapentin 600 mg qhs cont lithium ER 450 mg, lamotrigine 200 mg, benztropine 1 mg, trazodone 150 mg prn, melatonin prn 04/19 (covering provider) pt more manic, not sleeping dc vraylar. (mght also have been that Zyprexa was discontinued !) inc invega to 9mg outpt provider looking to get her on FISH inc gabapentin for sleep to 600mg cont lithium ER 450 mg, lamotrigine 200 mg, benztropine 1 mg, trazodone 150 mg prn, melatonin prn 04/17 (covering provider) Increase Vraylar to 3 mg Discontinue Zyprexa cont paliperidone 6 mg qam cont lithium ER 450 mg, lamotrigine 200 mg, gabapentin 300 mg, benztropine 1 mg, trazodone 150 mg prn, melatonin prn 04/12 hold olanzapine 2.5 mg qhs start Vraylar 1.5 mg qd start oxcarbazepine 150 mg BID cont paliperidone 6 mg qam cont lithium ER 450 mg, lamotrigine 200 mg, gabapentin 300 mg, benztropine 1 mg, trazodone 150 mg prn, melatonin prn 04/05 start olanzapine 2.5 mg qhs cont paliperidone 6 mg qam cont lithium ER 450 mg, lamotrigine 200 mg, gabapentin 300 mg, benztropine 1 mg, trazodone 150 mg prn, melatonin prn PLAN: continue IOP cotninue paliperidone 7.5 mg qd (split dose 6mg AM/ 1.5 mg in afternoon) continue lithium er 600 mg qhs (will give lab slip for Li level/blood draw for midweek) continue diphenhydramine 25-50 mg qhs continue cogentin 1 mg qd continue lamotrigine 100 mg BID continue gabapentin 600 mg qhs continue trazodone 150 mg qhs prn continue melatonin 3 mg qhs prn continue regular medications Will check lithium level, renal fxn, ck, on will also check ferritin and cbc given low iron studies (?normal hb hct possibly 2/t dehydration, check u/a and osm urine juliette since lithium was raised) Borderline QTc 455 last month (paliperidone was at 6 mg), will recheck this as well since paliperidone was increased Continue to monitor Patient educated on: diagnosis, medication risk/benefits and medical condition Informed Consent: understands Reason for contiued partial hosp. stay Substantial Risk for: rapid decompensation and med/psych decompensation Certification I certify that partial hospital treatment is medically necessary due to the symptoms and problems resulting from the patient's mental illness and the sean lure to treat the patient at the partial hospital level of care would likely result in the patient requiring inpatient psychiatric care which could not be prevented at a less intensive level of care. Total time managing care of this patient today __30__ minutes. Discharge Plan Discharge Attending provider: Paz Good Medications: New gabapentin 300 mg capsule 600 mg PO BEDTIME 14 Days Qty: 28 0RF lithium carbonate 300 mg tablet extended release 600 mg PO BEDTIME Qty: 60 0RF paliperidone [Invega] 6 mg tablet extended release 24hr 6 mg PO QAM Qty: 15 0RF paliperidone [Invega] 1.5 mg tablet extended release 24hr 1.5 mg PO DAILY Qty: 30 0RF oxcarbazepine [Trileptal] 300 mg tablet 300 mg PO TID Qty: 90 0RF paliperidone [Invega] 9 mg tablet extended release 24hr 9 mg PO BEDTIME Qty: 30 0RF Continued hydroxyzine HCl 10 mg tablet 20 - 30 mg PO TID PRN (Reason: anxiety) tizanidine 4 mg tablet 4 mg PO BID Nortrel (28) 1-35 mg-mcg tablet 1 tab PO DAILY melatonin 3 mg Capsule 3 mg PO BEDTIME PRN (Reason: Insomnia) Rx Instructions: Patient takes OTC as needed at bedtime. Discontinued lithium carbonate 450 mg Tablet Extended Release 450 mg PO BEDTIME paliperidone [Invega] 6 mg Tablet Extended Release 24hr 6 mg PO QAM gabapentin 300 mg capsule 300 mg PO BEDTIME Patient Comments: Patient takes at bedtime. No Action diphenhydramine HCl 50 mg capsule 50 mg PO BEDTIME Qty: 30 0RF oxcarbazepine 300 mg tablet 300 mg PO BID Qty: 60 0RF gabapentin 600 mg tablet 600 mg PO BEDTIME Qty: 30 0RF lamotrigine 100 mg Tablet 100 mg PO BID Qty: 60 0RF quetiapine 50 mg tablet 50 mg PO DAILY PRN (Reason: for AH or VH) Qty: 30 0RF paliperidone [Invega] 1.5 mg tablet extended release 24hr 1.5 mg PO BID Qty: 30 0RF benztropine 1 mg tablet 1 mg PO BID Qty: 60 0RF trazodone 150 mg Tablet 150 mg PO BEDTIME PRN (Reason: Insomnia) Qty: 30 0RF oxcarbazepine 150 mg tablet 150 mg PO BID Qty: 30 0RF Rx Instructions: take one 300 mg tablet + one 150 mg tablet = 450 mg BID paliperidone [Invega] 9 mg tablet extended release 24hr 4.5 mg PO BID Qty: 30 0RF Rx Instructions: (splitting dose for better tolerance) Stand Alone Forms: Patient Portal Discharge page Patient Education: Schizoaffective Disorder (ED), Schizoaffective Disorder (DC), PTSD (Post Traumatic Stress Disorder) (ED), PTSD (Post Traumatic Stress Disorder) (DC), Autism Spectrum Disorder (DC) Print Language: Nepali
--- NOTE | 2025-05-08 10:17 | PC.NURSE ---
Addendum entered by Nova Mcgowan RN 05/08/25 11:53: 11:53 BP 113/85 P 86. Patient encouraged to continue to drink fluids daily to prevent dehydration. Original Note: Patient stated she did not sleep well last night. Stated she went to bed at 1930 and woke at midnight and was not able to get back to bed until 0400. Patient's BP 80/66 P 86. Patient denied feeling any dizziness or light headedness. Patient stated, I have to be honest I haven't been drinking that much fluids. Patient reports she needs to get better at this. Patient stated she has fluids at her home including Gatorade and water. Patient given water and apple juice to drink and was encouraged to increase fluid intake while in the program. Education given to patient about the importance of daily fluid intake for physical and mental health.
[2025-05-08 10:22] VITALS: BP 80/66; PULSE 86
[2025-05-08 11:50] VITALS: BP 113/85; PULSE 86
--- NOTE | 2025-05-08 16:45 | HO.PHPPROGNO ---
Subjective Subjective Date of Service: 05/07/25 Reason For Visit: schizoaffective d/o Interim History: Cnntinues to be stable. I'm doing really well, no more mightmares Sleep intact. No signs of rocky per patient. SHe remains pleasant in groups and at baseline. SHe is pleased that thus far she reports stiffness in her neck has been improving, notices a little more for an hour or 2 after AM dose unevenly split as 6/1.5, does not make her sleep, we agree to shift some of the dose to later in the day, and may take in PM. Mood euthymic, denies rocky. Anxiety is good. Denies any SI, HI, AH, VH. Medication Compliance: Yes Side effects from medications: Yes (as noted above) Attending Groups: Yes Review of Systems Acute medical concerns: No running hypotensive in AMs, staff encouraging po fluids possibly polyuric (hypotonic) Mental Status Exam Mental Status Exam Narrative: Alert, oriented, in no acute distress. Calm, cooperative, engaged, agreeable. Eye contact intermittent. Mood good, affect bright, mood congruent. Speech normal. Thought process less scattered, linear, coherent. Thought content related to stressors, focused on medication side effects, overall more organized, goal-directed, Future oriented, no helplessness, denies hopelessness or SI, intention or plan. Denies any aggressive ideation. No paranoia or delusional content elicited. No evidence of psychosis. Insight good and judgment fair-good. Diagnostics Vital Signs (24Hr): Vital Signs - 24 hr 05/08/25 10:22 05/08/25 11:50 Pulse Rate 86 86 Blood Pressure 80/66 L 113/85 BMI result Body Mass Index 27.1 Assessment & Plan Assessment & Plan (1) Schizoaffective disorder, bipolar type: Status: Acute Code(s): F25.0 - Schizoaffective disorder, bipolar type (2) Autism spectrum disorder: Status: Acute Code(s): F84.0 - Autistic disorder (3) STEVEN (generalized anxiety disorder): Status: Acute Code(s): F41.1 - Generalized anxiety disorder (4) Dietary iron deficiency without anemia: Status: Acute Code(s): E61.1 - Iron deficiency (5) Post traumatic stress disorder (PTSD): Status: Acute Code(s): F43.10 - Post-traumatic stress disorder, unspecified (6) Acute stress reaction: Status: Acute Code(s): F43.0 - Acute stress reaction Plan 05/04 continue paliperidone 7.5 mg qd (split dose 6mg AM/ 1.5 mg in afternoon) continue lithium er 600 mg qhs (will give lab slip for Li level/blood draw for midweek) continue gabapentin 600 mg qhs cont lamotrigine 200 mg, benztropine 1 mg, trazodone 150 mg prn, melatonin prn, diphenhydramine 25-50 mg qhs 05/01 reduce paliperidone from 9 mg to 7.5 mg qd (split dose AM/afternoon) cont lithium er 600 mg qhs (will give lab slip for Li level/blood draw for midweek) start diphenhydramine 25-50 mg qhs cont gabapentin 600 mg qhs cont lamotrigine 200 mg, benztropine 1 mg, trazodone 150 mg prn, melatonin prn 04/24 increase lithium ER to 600 mg cont paliperidone 9 mg qd cont gabapentin 600 mg qhs cont lamotrigine 200 mg, benztropine 1 mg, trazodone 150 mg prn, melatonin prn 04/19 (covering provider) pt more manic, not sleeping dc vraylar. (mght also have been that Zyprexa was discontinued !) inc invega to 9mg outpt provider looking to get her on FISH inc gabapentin for sleep to 600mg cont lithium ER 450 mg, lamotrigine 200 mg, benztropine 1 mg, trazodone 150 mg prn, melatonin prn 04/17 (covering provider) Increase Vraylar to 3 mg Discontinue Zyprexa cont paliperidone 6 mg qam cont lithium ER 450 mg, lamotrigine 200 mg, gabapentin 300 mg, benztropine 1 mg, trazodone 150 mg prn, melatonin prn 04/12 hold olanzapine 2.5 mg qhs start Vraylar 1.5 mg qd start oxcarbazepine 150 mg BID cont paliperidone 6 mg qam cont lithium ER 450 mg, lamotrigine 200 mg, gabapentin 300 mg, benztropine 1 mg, trazodone 150 mg prn, melatonin prn 04/05 start olanzapine 2.5 mg qhs cont paliperidone 6 mg qam cont lithium ER 450 mg, lamotrigine 200 mg, gabapentin 300 mg, benztropine 1 mg, trazodone 150 mg prn, melatonin prn PLAN: continue IOP continue paliperidone 7.5 mg qd (re-split dose into 4.5 mg AM/ 3 mg in afternoon) continue lithium er 600 mg qhs (will give lab slip for Li level/blood draw for midweek) continue diphenhydramine 25-50 mg qhs continue cogentin 1 mg qd continue lamotrigine 100 mg BID continue gabapentin 600 mg qhs continue trazodone 150 mg qhs prn continue melatonin 3 mg qhs prn continue regular medications Lab work reviewed - will plan for 24 hour urine will also check ferritin and cbc given low iron studies (?normal hb hct possibly 2/t dehydration, check u/a and osm urine juliette since lithium was raised) Borderline QTc 455 last month (paliperidone was at 6 mg), will recheck this as well since paliperidone was increased Continue to monitor Patient educated on: diagnosis, medication risk/benefits and medical condition Informed Consent: understands Reason for contiued partial hosp. stay Substantial Risk for: rapid decompensation and med/psych decompensation Certification I certify that partial hospital treatment is medically necessary due to the symptoms and problems resulting from the patient's mental illness and the failure to treat the patient at the partial hospital level of care would likely result in the patient requiring inpatient psychiatric care which could not be prevented at a less intensive level of care. Total time managing care of this patient today __30__ minutes. Discharge Plan Discharge Attending provider: Paz Good Medications: New gabapentin 300 mg capsule 600 mg PO BEDTIME 14 Days Qty: 28 0RF lithium carbonate 300 mg tablet extended release 600 mg PO BEDTIME Qty: 60 0RF paliperidone [Invega] 6 mg tablet extended release 24hr 6 mg PO QAM Qty: 15 0RF paliperidone [Invega] 1.5 mg tablet extended release 24hr 1.5 mg PO DAILY Qty: 30 0RF oxcarbazepine [Trileptal] 300 mg tablet 300 mg PO TID Qty: 90 0RF paliperidone [Invega] 9 mg tablet extended release 24hr 9 mg PO BEDTIME Qty: 30 0RF Continued hydroxyzine HCl 10 mg tablet 20 - 30 mg PO TID PRN (Reason: anxiety) tizanidine 4 mg tablet 4 mg PO BID Nortrel 35 (28) 1-35 mg-mcg tablet 1 tab PO DAILY melatonin 3 mg Capsule 3 mg PO BEDTIME PRN (Reason: Insomnia) Rx Instructions: Patient takes OTC as needed at bedtime. Discontinued lithium carbonate 450 mg Tablet Extended Release 450 mg PO BEDTIME paliperidone [Invega] 6 mg Tablet Extended Release 24hr 6 mg PO QAM gabapentin 300 mg capsule 300 mg PO BEDTIME Patient Comments: Patient takes at bedtime. No Action diphenhydramine HCl 50 mg capsule 50 mg PO BEDTIME Qty: 30 0RF oxcarbazepine 300 mg tablet 300 mg PO BID Qty: 60 0RF gabapentin 600 mg tablet 600 mg PO BEDTIME Qty: 30 0RF lamotrigine 100 mg Tablet 100 mg PO BID Qty: 60 0RF quetiapine 50 mg tablet 50 mg PO DAILY PRN (Reason: for AH or VH) Qty: 30 0RF paliperidone [Invega] 1.5 mg tablet extended release 24hr 1.5 mg PO BID Qty: 30 0RF benztropine 1 mg tablet 1 mg PO BID Qty: 60 0RF trazodone 150 mg Tablet 150 mg PO BEDTIME PRN (Reason: Insomnia) Qty: 30 0RF oxcarbazepine 150 mg tablet 150 mg PO BID Qty: 30 0RF Rx Instructions: take one 300 mg tablet + one 150 mg tablet = 450 mg BID paliperidone [Invega] 9 mg tablet extended release 24hr 4.5 mg PO BID Qty: 30 0RF Rx Instructions: (splitting dose for better tolerance) Stand Alone Forms: Patient Portal Discharge page Patient Education: Schizoaffective Disorder (ED), Schizoaffective Disorder (DC), PTSD (Post Traumatic Stress Disorder) (ED), PTSD (Post Traumatic Stress Disorder) (DC), Autism Spectrum Disorder (DC) Print Language: Kiswahili
--- NOTE | 2025-05-09 08:42 | PC.NURSE ---
Dr. Good is aware of patient's BP on 05/08/25 80/66 P 86 and after fluid intake 113/85 P 86. Patient reports that she has not been drinking fluids like she should. Patient encouraged to increase her fluid intake.
[2025-05-09 09:22] VITALS: BP 88/68; PULSE 76
[2025-05-09 12:55] VITALS: BP 122/83; PULSE 92
[2025-05-10 11:16] VITALS: BP 118/84; PULSE 118
--- NOTE | 2025-05-10 15:29 | PC.NURSE ---
Dr Good is aware of lab results including CL 109, Gap 10, Bun 8, R glucose 117, Osmoality 292, Osmo rand Ur 45, Payette 0.38, Ur creat 6.87, Ur sodium Less than 20, Iron 21, Saturation 6, Cholesterol 204. 24 hour urine ordered by Dr. Good. Patient returning to [facility] level of care in 2 weeks.
--- NOTE | 2025-05-10 22:43 | P.PNPSP_ITS ---
Subjective Subjective Date of Service: 05/10/25 Reason For Visit: schizoaffective d/o Interim History: Patient seen for follow-up, anticipating discharge at the end of program today.? I'm good. I feel good. No rocky. My neck is better . Patient completed 24 hours urine (apprx 3 L) is polyuric, pending labwork. Urine osmolality low with normal serum osmolality. We discussed plan to return to [facility] to address lithium, given emerging diabete insipidus and considering transitioning away from lithium which patient was happy about as this was one of her primary complaints when she started at [facility] due to weight gain concerns from lithium. WE discussed possibly transitioning onto oxcarbazepine , especialy since there is not much room with neuroleptic medications given issues with dystonia/ EPS from paliperidone. She is tolerating 7.5 mg split (4.5/3) with Cogentin now at 1 mg BID. We included her mother Jumana ([phone]) I also discussed with her psych provider Johanna Garcia ([phone])who was on board as she has been hoping to get her off lithium at some point as well, and agreed with plan to transition onto oxcarbazepine. Reports no acute issues or concerns. Medication compliant, medications well- tolerated. Denies any adverse effects.? Mood is stable.? Denies any hopelessness or SI. Denies thoughts of harming self or others at this time. Denies any aggressive ideation or HI. Denies any paranoia or AH or VH. Sleep, appetite, energy stable. Medication Compliance: Yes Side effects from medications: Yes (as noted) Attending Groups: Yes Review of Systems Acute medical concerns: Yes patient encouraged to maintain hydration due to hypotension likely 2/t volume depletion/polyuria (DI) Mental Status Exam Mental Status Exam Narrative: Alert, oriented, in no acute distress. Calm, cooperative. Mood stable, affect appropriate. Speech normal. Thought process linear, coherent, more goal- directed. Thought content related to stressors, future-oriented, denies any helplessness, hopelessness or SI.? No aggressive ideation or HI. No paranoia or delusional content elicited. No evidence of psychosis. Insight and judgment fair-good. Patient Appearance: Appropriate (fidgeting with piece of fuzzy cloth (for sensory)) Patient Orientation: Person, Place, Time and Situation Level of Consciousness: Awake Patient Behavior: Talkative, Cooperative, Restless and Poor Eye Contact (maybe baseline patient on autism spectrum) Mood Description: Cheerful and Anxious Affect Description: Expansive Patient Cognition Impaired: No Ability to Follow Directions: Fair Speech Pattern: Clear Diagnostics Vital Signs (24Hr): BMI result Body Mass Index 27.1 Assessment & Plan Assessment & Plan (1) Schizoaffective disorder, bipolar type: Status: Acute Code(s): F25.0 - Schizoaffective disorder, bipolar type (2) Autism spectrum disorder: Status: Acute Code(s): F84.0 - Autistic disorder (3) STEVEN (generalized anxiety disorder): Status: Acute Code(s): F41.1 - Generalized anxiety disorder (4) Dietary iron deficiency without anemia: Status: Acute Code(s): E61.1 - Iron deficiency (5) Post traumatic stress disorder (PTSD): Status: Acute Code(s): F43.10 - Post-traumatic stress disorder, unspecified Plan Discharge PHP Patient will be returning to IOP for continued medication management Spoke with patient's mother and psychiatrist to review plan. Patient is in agreement with plan. cont paliperidone 7.5 mg qd (split dose AM/afternoon) cont lithium er 600 mg qhs cont diphenhydramine 25-50 mg qhs cont Cogentin 1 mg qd cont lamotrigine 100 mg BID cont gabapentin 600 mg qhs cont trazodone 150 mg qhs prn cont melatonin 3 mg qhs prn cont other regular medications Will check lithium level, renal fxn, ck, on thurs Lab findings reviewed alan patient and provider Borderline QTc 455 last month (paliperidone was at 6 mg), will recheck in IOP this as well since paliperidone was increased Patient returning to IOP in 2 weeks *Safety plan reviewed *Discharge diagnoses, treatment course, discharge plan have been reviewed with patient (including medication regime, medication management, potential side effects) as well as treatment rationale were also revisited *Discharge paperwork signed and given to patient, copy sent for scanning to chart Patient educated on: diagnosis, medication risk/benefits and medical condition Informed Consent: understands Reason for contiued partial hosp. stay Substantial Risk for: stable for discharge Certification I certify that partial hospital treatment is medically necessary due to the symptoms and problems resulting from the patient's mental illness and the failure to treat the patient at the partial hospital level of care would likely result in the patient requiring inpatient psychiatric care which could not be prevented at a less intensive level of care. Total time managing care of this patient today __30__ minutes. Discharge Plan Discharge Attending provider: Paz Good Medications: New gabapentin 300 mg capsule 600 mg PO BEDTIME 14 Days Qty: 28 0RF lithium carbonate 300 mg tablet extended release 600 mg PO BEDTIME Qty: 60 0RF paliperidone [Invega] 6 mg tablet extended release 24hr 6 mg PO QAM Qty: 15 0RF paliperidone [Invega] 1.5 mg tablet extended release 24hr 1.5 mg PO DAILY Qty: 30 0RF oxcarbazepine [Trileptal] 300 mg tablet 300 mg PO TID Qty: 90 0RF paliperidone [Invega] 9 mg tablet extended release 24hr 9 mg PO BEDTIME Qty: 30 0RF Continued hydroxyzine HCl 10 mg tablet 20 - 30 mg PO TID PRN (Reason: anxiety) tizanidine 4 mg tablet 4 mg PO BID Nortrel () 1-35 mg-mcg tablet 1 tab PO DAILY melatonin 3 mg Capsule 3 mg PO BEDTIME PRN (Reason: Insomnia) Rx Instructions: Patient takes OTC as needed at bedtime. Discontinued lithium carbonate 450 mg Tablet Extended Release 450 mg PO BEDTIME paliperidone [Invega] 6 mg Tablet Extended Release 24hr 6 mg PO QAM gabapentin 300 mg capsule 300 mg PO BEDTIME Patient Comments: Patient takes at bedtime. No Action diphenhydramine HCl 50 mg capsule 50 mg PO BEDTIME Qty: 30 0RF oxcarbazepine 300 mg tablet 300 mg PO BID Qty: 60 0RF gabapentin 600 mg tablet 600 mg PO BEDTIME Qty: 30 0RF lamotrigine 100 mg Tablet 100 mg PO BID Qty: 60 0RF quetiapine 50 mg tablet 50 mg PO DAILY PRN (Reason: for AH or VH) Qty: 30 0RF paliperidone [Invega] 1.5 mg tablet extended release 24hr 1.5 mg PO BID Qty: 30 0RF benztropine 1 mg tablet 1 mg PO BID Qty: 60 0RF trazodone 150 mg Tablet 150 mg PO BEDTIME PRN (Reason: Insomnia) Qty: 30 0RF oxcarbazepine 150 mg tablet 150 mg PO BID Qty: 30 0RF Rx Instructions: take one 300 mg tablet + one 150 mg tablet = 450 mg BID paliperidone [Invega] 9 mg tablet extended release 24hr 4.5 mg PO BID Qty: 30 0RF Rx Instructions: (splitting dose for better tolerance) Stand Alone Forms: Patient Portal Discharge page Patient Education: Schizoaffective Disorder (ED), Schizoaffective Disorder (DC), PTSD (Post Traumatic Stress Disorder) (ED), PTSD (Post Traumatic Stress Disorder) (DC), Autism Spectrum Disorder (DC) Print Language: Bulgarian
--- NOTE | 2025-05-14 10:13 | PC.NURSE ---
Dr. De Anda reviewed lab results including Wanda 24 hr Ur less than 5.0, 24 hour Volume 2925, UA and Micros-Ur Lori Esterase Trace. Dr. Good to f/u with patient. No new orders. Dr. Good is having patient come back to [facility] with in 2 weeks for f/u. Patient is on the schedule to come back to the program.
--- NOTE | 2025-05-29 13:27 | HO.PHPPROGNO ---
Subjective Subjective Date of Service: 05/29/25 Reason For Visit: schizoaffective d/o Interim History: Patient was seen for a follow-up. She is doing well in IOP after PHP. The plan with Dr. Angi wilson was to have her taper off lithium because of weight gain and transitioning to Trileptal and currently is on 600 mg. She will stop to 300 mg of lithium and increase Trileptal to 900 mg. Also the and they go was supposed to been increased but there sure it is would not give additional 1.5 mg tablets so a prescription for 9 mg tablets was sent in for 1 nightly. She denies any side effects. She states that since she has been on Trileptal after a short time she is feeling better with no mood instability. Less anger and anxiety. Sleeping adequately Review of Systems Review of Systems Yes all other systems are reviewed and are negative Mental Status Exam Mental Status Exam Narrative: In today's visit she is alert, oriented and pleasant. And normal speech. Little to no eye contact. Affect is appropriate and varied. No signs of psychosis, hypomania, delusions. No AVH. No SI. Cognitively with no gross deficits. Judgment is intact. Diagnostics Vital Signs (24Hr): BMI result Body Mass Index 27.1 Assessment & Plan Assessment & Plan (1) Schizoaffective disorder, bipolar type: Status: Acute Code(s): F25.0 - Schizoaffective disorder, bipolar type Plan Continue IOP. Continue current medications with increase of Invega to 9 mg, Trileptal to 900 mg and discontinuation of lithium Certification I certify that partial hospital treatment is medically necessary due to the symptoms and problems resulting from the patient's mental illness and the failure to treat the patient at the partial hospital level of care would likely result in the patient requiring inpatient psychiatric care which could not be prevented at a less intensive level of care. Total time managing care of this patient today ____ minutes. Discharge Plan Discharge Attending provider: Paz Good Medications: New gabapentin 300 mg capsule 600 mg PO BEDTIME 14 Days Qty: 28 0RF lithium carbonate 300 mg tablet extended release 600 mg PO BEDTIME Qty: 60 0RF paliperidone [Invega] 6 mg tablet extended release 24hr 6 mg PO QAM Qty: 15 0RF paliperidone [Invega] 1.5 mg tablet extended release 24hr 1.5 mg PO DAILY Qty: 30 0RF oxcarbazepine [Trileptal] 300 mg tablet 300 mg PO TID Qty: 90 0RF paliperidone [Invega] 9 mg tablet extended release 24hr 9 mg PO BEDTIME Qty: 30 0RF Continued hydroxyzine HCl 10 mg tablet 20 - 30 mg PO TID PRN (Reason: anxiety) tizanidine 4 mg tablet 4 mg PO BID Nortrel 1/35 (28) 1-35 mg-mcg tablet 1 tab PO DAILY melatonin 3 mg Capsule 3 mg PO BEDTIME PRN (Reason: Insomnia) Rx Instructions: Patient takes OTC as needed at bedtime. Discontinued lithium carbonate 450 mg Tablet Extended Release 450 mg PO BEDTIME paliperidone [Invega] 6 mg Tablet Extended Release 24hr 6 mg PO QAM gabapentin 300 mg capsule 300 mg PO BEDTIME Patient Comments: Patient takes at bedtime. No Action diphenhydramine HCl 50 mg capsule 50 mg PO BEDTIME Qty: 30 0RF oxcarbazepine 300 mg tablet 300 mg PO BID Qty: 60 0RF gabapentin 600 mg tablet 600 mg PO BEDTIME Qty: 30 0RF lamotrigine 100 mg Tablet 100 mg PO BID Qty: 60 0RF quetiapine 50 mg tablet 50 mg PO DAILY PRN (Reason: for AH or VH) Qty: 30 0RF paliperidone [Invega] 1.5 mg tablet extended release 24hr 1.5 mg PO BID Qty: 30 0RF benztropine 1 mg tablet 1 mg PO BID Qty: 60 0RF trazodone 150 mg Tablet 150 mg PO BEDTIME PRN (Reason: Insomnia) Qty: 30 0RF oxcarbazepine 150 mg tablet 150 mg PO BID Qty: 30 0RF Rx Instructions: take one 300 mg tablet + one 150 mg tablet = 450 mg BID paliperidone [Invega] 9 mg tablet extended release 24hr 4.5 mg PO BID Qty: 30 0RF Rx Instructions: (splitting dose for better tolerance) Stand Alone Forms: Patient Portal Discharge page Patient Education: Schizoaffective Disorder (ED), Schizoaffective Disorder (DC), PTSD (Post Traumatic Stress Disorder) (ED), PTSD (Post Traumatic Stress Disorder) (DC), Autism Spectrum Disorder (DC) Print Language: Panamanian
== END 2025-05-10 23:59 | disposition home or self-care (01) ==
LOC: HO.PHPA 09:45
PROVIDERS: Visit Provider Psychiatry & Neurology Psychiatry
DX: F25.0 Schizoaffective disorder, bipolar type (principal); F84.0 Autistic disorder; F41.1 Generalized anxiety disorder; F43.10 Post-traumatic stress disorder, unspecified; F43.0 Acute stress reaction; E61.1 Iron deficiency; Z79.899 Other long term (current) drug therapy
CPT/HCPCS: 90791; 90853

== ENCOUNTER 2025-05-12 14:04 | Outpatient (REF) | payer MEDICARE, MEDICAID, SELFPAY ==
[2025-05-14 08:39] LABS: Total Volume 24 Hour Urine 2925 mL
[2025-05-14 11:06] LABS: Creatinine, mg/dL 38.33; Sodium, 24 Hr Urine 32.0 mmol/L
== END 2025-05-12 14:05 | disposition home or self-care (01) ==
LOC: HO.LNP 14:04
PROVIDERS: Visit Provider Psychiatry & Neurology Psychiatry
DX: E23.2 Diabetes insipidus (principal)
CPT/HCPCS: 82043; 82570; 84300

== ENCOUNTER 2025-05-14 07:36 | Outpatient (REF) | payer MEDICARE, MEDICAID, SELFPAY ==
--- OUTSIDE RECORDS SUMMARY | 2025-05-14 07:39 | XMS_ITS | Clinical Summary ---
Author Organization [facility] Address [address] [facility] [address] [place] [address] Phone Care Team Providers Care Oracle Data Warehouse Developer Name Role Phone Unknown, Unknown Primary Care [...] topic Medical Devices Not on file Insurance [employer] [place] [id number] [employer] INDEMNITY [employer]DEMN[employer] INDEMNITY [employer] INDEMNITY [employer] TOTAL CHOICE INDEMNITY [facility] TOTAL CHOICE INDEMNITY Care Teams Oracle Data Warehouse Developer Relationship Specialty Start Date End Date Unknown, Unknown, PCP - General 05/05/21 Additional Source Comments The information contained in this document represents components of the legal health record. It is not the complete legal health record.[facility]
[2025-05-14 08:13] LABS: Appearance Urine Cloudy; Glucose Urine UA Negative (Negative); PH 7.5 (5.0-9.0); Specific Gravity - Urine 1.010 (1.005-1.025); UMIC TRIGGER UA YES
== END 2025-05-14 07:37 | disposition home or self-care (01) ==
LOC: HO.LAB 07:36
PROVIDERS: Visit Provider Psychiatry & Neurology Psychiatry
DX: E23.2 Diabetes insipidus (principal)
CPT/HCPCS: 81001; 82043; 82570; 83935

== ENCOUNTER → 2025-05-23 09:00 | Outpatient (BNV) | payer MEDICARE, MEDICAID, SELFPAY | PROVIDERS: Visit Provider Psychiatry & Neurology Psychiatry | DX: F25.0 Schizoaffective disorder, bipolar type (principal); F84.0 Autistic disorder; F41.1 Generalized anxiety disorder; F43.0 Acute stress reaction; E61.1 Iron deficiency | CPT/HCPCS: 90792; 99499 ==

== ENCOUNTER 2025-06-07 09:00 | Outpatient (RCR) | payer MEDICARE, MEDICAID, SELFPAY ==
[2025-05-20 13:10] VITALS: BP 100/72; PULSE 100
[2025-05-20 13:11] VITALS: BMI 27.7
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
--- NOTE | 2025-05-24 07:34 | HO.PHP ---
Lexie's case was opened during weekly treatment team meeting on 05/23/25
--- NOTE | 2025-05-24 16:27 | P.EN_ITS ---
Event Note Date of Service: 05/24/25 Event Note: 24 yo w Schizoaffective disorder bipolar type, autism who recently completed PHP for treatment of rocky. She was stabilized on lithium 600 mg ER and paliperidone 7.5 mg - split BID as 4.5/3 mg (due to EPS/neck stiffness) d/t difficulty tolerating once daily dosing ) Pt had been symptomatic with low blood pressures which recovered with pushing po fluids, urine studies and 24 hour urine revealed pt being polyuric around 3L with low urine osmolality, concerning for DI, though appears to be mild at this time. nonetheless patient and her outpatient psychiatrist have been eager to get her off of lithium for some time now due to weight gain. Spoke with patient's outpatient psychiatrist who was in agreement with plan for patient to return to program to switch over to oxcarbazepine in lieu of lithium, (pt previously tolerated oxcarb at 150 bid but was d/c after 6 days in favor of other treatment options) Patient in agreement with plan and returning to IOP to continue with medication management and monitoring while we transition off lithium.. Checked in with patient today who reports her mood is holding steady feels good, no rocky . Sleeping, appetite, energy stable. No AVH, SI, HI. She was last seen Tuesday, lithium ER was lowered from 600 mg to 450 mg. Oxcarbazepine was started at 150 bid and titrated to 300 mg BID since 2 days ago, paliperidone was bumped up from 7.5/d (split) to 9 mg/d (split) to provide more stability as we transition patient off lithium onto oxc - hopefully only temporarily given, patient having had difficulties tolerating 9 mg/d a few weeks ago. Says she feels she is doing well with the medication, no side effects so far . She states she is eager to get tapered off lithium however I suggest we hold off further reduction of dose until after the weekend. currently dose at 450 mg ER. continue IOP titrate oxcarbazepine to 300-450 mg BID (continue to titrate as tolerated) continue paliperidone 4.5 mg BID (anticipate returning dose to 7.5 mg/d once OXC is optimized) continue Cogentin 1 mg BID plan to taper lithium ER to 300 mg qd in next few days (continue to taper as tolerated) will be following up with covering provider to continue continue other regular medications Time Spent With Patient Time: Total time managing care of this patient today ____ minutes.
[2025-06-05 11:58] VITALS: TEMP 37.1
--- NOTE | 2025-06-05 11:58 | PC.NURSE ---
Lexie stated she felt she may be getting a cold. Temp 98.7. Encouraged her to drink fluids and orange juice.
--- NOTE | 2025-06-07 20:37 | P.PNPSP_ITS ---
Subjective Subjective Date of Service: 06/10/25 Reason For Visit: schizoaffective d/o Interim History: Patient seen for follow-up, anticipating discharge at the end of program today.? I feel good, no rocky... I'm happy to be off lithium She has been tolerating carbamazepine at 300/600. [place] was gradually tapered and discontinued without issue. C continues on paliperidone daily and Seroquel for hallucinosis. She denies utilizing any in the past few weeks. Feels she has been doing well. Metformin to mitigate weight gain from NL meds. Spoke about past trauma and remained well-regulated. Also spoke about things she looked forward to doing. Reports no acute issues or concerns. Medication compliant, medications well- tolerated. Denies any adverse effects.? Mood is stable.? Denies any hopelessness or SI. Denies thoughts of harming self or others at this time. Denies any aggressive ideation or HI. Denies any paranoia or AH or VH. Sleep, appetite, energy stable. Medication Compliance: Yes Side effects from medications: No (as noted) Attending Groups: Yes Review of Systems Acute medical concerns: No Review of Systems Review of Systems Yes all other systems are reviewed and are negative Mental Status Exam Mental Status Exam Narrative: In today's visit she is alert, oriented and pleasant. And normal speech. Little to no eye contact. Affect is appropriate and varied. No signs of psychosis, hypomania, delusions. No AVH. No SI. Cognitively with no gross deficits. Judgment is intact. Diagnostics Vital Signs (24Hr): BMI result Body Mass Index 27.7 Assessment & Plan Assessment & Plan (1) Schizoaffective disorder, bipolar type: Status: Acute Code(s): F25.0 - Schizoaffective disorder, bipolar type (2) Autism spectrum disorder: Status: Acute Code(s): F84.0 - Autistic disorder (3) STEVEN (generalized anxiety disorder): Status: Acute Code(s): F41.1 - Generalized anxiety disorder (4) Dietary iron deficiency without anemia: Status: Acute Code(s): E61.1 - Iron deficiency (5) Post traumatic stress disorder (PTSD): Status: Acute Code(s): F43.10 - Post-traumatic stress disorder, unspecified Plan Discharge IOP Discharge from [facility] Continue regular medications? Refills sent to pharmacy Will defer further medication management to outpatient provider *Safety plan reviewed *Discharge diagnoses, treatment course, discharge plan have been reviewed with patient (including medication regime, medication management, potential side effects) as well as treatment rationale were also revisited *Discharge paperwork signed and given to patient, copy sent for scanning to chart Patient educated on: diagnosis, medication risk/benefits and medical condition Informed Consent: understands Reason for contiued partial hosp. stay Substantial Risk for: stable for discharge Certification I certify that partial hospital treatment is medically necessary due to the symptoms and problems resulting from the patient's mental illness and the failure to treat the patient at the partial hospital level of care would likely result in the patient requiring inpatient psychiatric care which could not be prevented at a less intensive level of care. Total time managing care of this patient today __30__ minutes. Discharge Plan Discharge Attending provider: Paz Good Medications: New gabapentin 600 mg tablet 600 mg PO BEDTIME Qty: 30 0RF oxcarbazepine 600 mg tablet 600 mg PO BEDTIME Qty: 30 0RF paliperidone [Invega] 1.5 mg tablet extended release 24hr 1.5 mg PO BID Qty: 60 0RF paliperidone [Invega] 6 mg tablet extended release 24hr 6 mg PO DAILY Qty: 30 0RF metformin 500 mg tablet 250 mg PO BID Qty: 30 0RF ferrous sulfate 325 mg (65 mg iron) tablet,delayed release (DR/EC) 325 mg PO DAILY Qty: 30 0RF folic acid 400 mcg tablet 0.4 mg PO DAILY Qty: 30 0RF Continued hydroxyzine HCl 10 mg tablet 20 - 30 mg PO TID PRN (Reason: anxiety) tizanidine 4 mg tablet 4 mg PO BID Nortrel 1/35 (28) 1-35 mg-mcg tablet 1 tab PO DAILY lamotrigine 100 mg Tablet 100 mg PO BID Qty: 60 0RF Changed benztropine 1 mg tablet 1 mg PO BID Qty: 60 0RF oxcarbazepine [Trileptal] 300 mg tablet 300 mg PO QAM Qty: 30 0RF diphenhydramine HCl 50 mg capsule 50 - 100 mg PO BEDTIME PRN (Reason: sleep) Qty: 60 0RF trazodone 150 mg Tablet 150 mg PO BEDTIME Qty: 30 0RF quetiapine 50 mg tablet 50 mg PO DAILY Qty: 30 0RF Discontinued melatonin 3 mg Capsule 3 mg PO BEDTIME PRN (Reason: Insomnia) Rx Instructions: Patient takes OTC as needed at bedtime. gabapentin 300 mg capsule 600 mg PO BEDTIME 14 Days Qty: 28 0RF lithium carbonate 300 mg tablet extended release 600 mg PO BEDTIME Qty: 60 0RF paliperidone [Invega] 6 mg tablet extended release 24hr 6 mg PO QAM Qty: 15 0RF diphenhydramine HCl 25 mg capsule 25 - 50 mg PO BEDTIME PRN (Reason: insomnia/stiffness/extrapyramidal symptoms) Qty: 30 0RF paliperidone [Invega] 1.5 mg tablet extended release 24hr 1.5 mg PO DAILY Qty: 30 0RF paliperidone [Invega] 9 mg tablet extended release 24hr 9 mg PO BEDTIME Qty: 30 0RF Stand Alone Forms: Patient Portal Discharge page Patient Education: Schizoaffective Disorder (ED), Schizoaffective Disorder (DC), PTSD (Post Traumatic Stress Disorder) (ED), PTSD (Post Traumatic Stress Disorder) (DC) Print Language: Slovak
== END 2025-06-07 23:59 | disposition home or self-care (01) ==
LOC: HO.IOP 09:00
PROVIDERS: Visit Provider Psychiatry & Neurology Psychiatry
DX: F25.0 Schizoaffective disorder, bipolar type (principal); F84.0 Autistic disorder; F41.1 Generalized anxiety disorder; F43.10 Post-traumatic stress disorder, unspecified; F43.0 Acute stress reaction; E61.1 Iron deficiency; Z79.899 Other long term (current) drug therapy
CPT/HCPCS: 90791; S9480